=== PATIENT | female | born 1970 | race Caucasian/White ===

== ENCOUNTER 2017-03-11 15:08 | Emergency (ER) | payer OTHER ==
[2017-03-11] MEDS ORDERED: OXYCODONE/APAP 5/325 TAB PO ONE (15:18)
[2017-03-11 15:20] VITALS: RESP 18; TEMP 97.9
--- NOTE | 2017-03-11 15:29 | EDPHY ---
H & P Time Seen by Provider: 03/11/17 15:12 HPI/ROS: HPI Left hand injury. 46-year-old female by private vehicle with her . This patient was working on her washing machine with her . The washing machine was on a spin cycle and she stuck her left hand into the back of the machine while it was spinning fast. She sustained a laceration and contusion to the distal aspect of her left index finger. She sustained a contusion to the distal aspect of her middle finger. She has had a tetanus shot within the last 5 years. She is right-hand dominant. She denies any other injury or complaint. ROS: Constitutional: No fever, no chills. No weakness. Musculoskeletal: No back pain. No neck pain. As above. Skin: No rashes. As above. Neurological: No headache. No focal weakness or altered sensation. Past medical history: Tonsillectomy, cholecystectomy. Social history: Here with her . Nonsmoker. No alcohol. Physical Exam: General Appearance: Alert, no distress. This patient is responding to questions appropriately and in full sentences. This patient appears well- hydrated and well-nourished. Eyes: Pupils equal and round no pallor or injection. No lid edema, erythema or injection. Left hand examination: Significant for a linear laceration, radial aspect, distal index finger tip, laceration extends into the adam neck ill fold on the radial aspect of the digit. Middle finger examination is significant for a subungual hematoma representing about 40-50%. Most prominent distal aspect of the nail bed. She has some mild bleeding from the paronychial fold on the radial aspect of that digit. It is tender to the touch. Capillary refill in all digits of the left hand normal. Flexor digitorum profundus and superficialis as well as extensor tendon function intact in digits 2 through 4. The thumb is normal. The palmar aspects of the hand and dorsal metacarpal aspects are normal. The left hand is neurovascularly intact. Respiratory: There are no retractions, lungs are clear to auscultation with good air movement bilaterally. Neurological: Motor sensory function is grossly intact. Cranial nerves are normal. Gait is normal. Skin: Warm and dry, no rashes. Musculoskeletal: Neck is supple and nontender. Extremities are symmetrical. All joints range without pain or impingement. Psychiatric: No agitation. No depression. Database: EKG: Imaging: Left hand x-ray series: Significant for a minimally displaced fracture to the very distal tip of the distal phalanx index finger. She also has a bony disruption and probable fracture with minimal displacement to the distal tip of the distal phalanx of the middle finger. There is some radio opaque debris in the soft tissue of the distal finger tip of the middle finger. This could be bone debris from her fracture or possible foreign material. Interpreted by me. Procedures: Procedure: Laceration repair. 1. Verbal consent was obtained from the patient. The 2 cm laceration on the distal index finger, partially involving the distal nail bed was anesthetized in the usual fashion. The wound was irrigated, draped and explored to its base with a gloved finger. There were no deep structures involved. No tendon injury was identified. No foreign body was identified on exploration. The wound was repaired with 9, 5.0 Prolene sutures placed in interrupted fashion. The wound repair was tolerated well and there were no complications. The procedure was performed by myself. Procedure: Laceration repair. 2. Verbal consent was obtained from the patient. The 2 cm laceration on the distal middle finger partially involving the distal nail bed was anesthetized in the usual fashion. The wound was irrigated, draped and explored to its base with a gloved finger. There were no deep structures involved. No tendon injury was identified. No foreign body was identified exploration The wound was repaired with 7, 5.0 Prolene sutures placed in interrupted fashion. The wound repair was tolerated well and there were no complications. The procedure was performed by myself. Emergency department course: Digital block performed on digits 2 and 3 using 0.5% bupivacaine without epinephrine. No complications, excellent anesthesia of this digits. After suture repair as above. X-ray results were discussed with the patient. Secondary to probable open fracture she was given 500 mg of Keflex in the emergency department. She will be prescribed this medication on discharge. Infection precautions in general suture care discussed. Follow-up through her primary care physician or a hand specialist which I will provide her referral to was discussed. Return to emergency department precautions reviewed. All of her questions were answered. She was discharged in good condition. Differential Diagnosis: The differential diagnosis on this patient includes but is not limited to finger laceration, finger contusion, subungual hematoma distal phalanx fractures. This represents a partial list of diagnoses considered. These considerations are based on history, physical exam, past history, reassessment and diagnostic testing. Smoking Status: Former smoker Constitutional: Initial Vital Signs Temperature (C) 36.6 C 03/11/17 15:18 Heart Rate 63 03/11/17 15:18 Respiratory Rate 18 03/11/17 15:18 Blood Pressure 133/85 H 03/11/17 15:18 O2 Sat (%) 99 03/11/17 15:18 O2 Delivery Mode Room Air Allergies/Adverse Reactions: codeine Allergy (Verified 03/11/17 15:20) fentanyl Allergy (Verified 03/11/17 15:20) Sulfa (Sulfonamide Antibiotics) Allergy (Verified 03/11/17 15:20) Home Medications: Medication Instructions Recorded Cephalexin [Keflex (*)] 500 mg PO Q6 7 Days 03/11/17 oxyCODONE/APAP 5/325 [Percocet 1 - 2 tab PO Q4-6PRN PRN #12 tab 03/11/17 5/325 (*)] Medical Decision Making - Diagnostics Imaging Results: Imaging Impressions Hand X-Ray 03/11/17 15:17 Impression: Fractures of the distal crystal of the second and third digits. - Data Points Medications Given: Discontinued Medications Cephalexin HCl (Keflex) 500 mg PO EDNOW ONE PRN Reason: Protocol Stop: 03/11/17 15:49 Last Admin: 03/11/17 16:34 Dose: 500 mg Oxycodone/Acetaminophen (Percocet 5/325) 2 tab PO EDNOW ONE Stop: 03/11/17 15:19 Last Admin: 03/11/17 15:25 Dose: 2 tab Departure - Departure Disposition: Home, Routine, Self-Care Clinical Impression: Finger laceration, Finger fracture, left Condition: Good Instructions: Care For Your Stitches (ED), Laceration (ED), Finger Laceration ( ED) Additional Instructions: Read and follow provided instructions. Follow-up with your primary care physician in 2 days or the hand specialist I have recommended to you for re-evaluation and any further management. Sutures are to be removed in 8-10 days. Take medication as prescribed. Take antibiotics through entire course of treatment. Return to the emergency department for worsening pain, discoloration, redness or swelling or other serious concerns. Ibuprofen dosin mg every 6 hours with meals for the next 3 days only. [place]/Percocet dosin-2 every 4-[address] for [address] Do not drive on this medication. Referrals: Yumi Leonardo [Primary Care Provider] - As per Instructions Lorin Kaiser MD [Medical Doctor] - As per Instructions Prescriptions: Cephalexin [Keflex (*)] 500 mg PO Q6 7 Days oxyCODONE/APAP 5/325 [Percocet 5/325 (*)] 1 - 2 tab PO Q4-6PRN PRN #12 tab PRN Reason: For Moderate To Severe Pain
[2017-03-11] MEDS ORDERED: CEPHALEXIN 500 MG CAP PO ONE (15:48)
[2017-03-11 16:52] VITALS: BP 106/65; PULSE 58; O2SAT 98
== END 2017-03-11 16:47 | disposition home or self-care (01) ==
LOC: CED 15:08
PROC: 0HQGXZZ Repair Left Hand Skin, External Approach (ICD-10-PCS; principal; 2017-03-11)
DX: S62.631A Displaced fracture of distal phalanx of left index finger, initial encounter for closed fracture (principal); S62.633A Displaced fracture of distal phalanx of left middle finger, initial encounter for closed fracture; S61.211A Laceration without foreign body of left index finger without damage to nail, initial encounter; S61.213A Laceration without foreign body of left middle finger without damage to nail, initial encounter; Z87.891 Personal history of nicotine dependence; W29.2XXA Contact with other powered household machinery, initial encounter
CPT/HCPCS: 73130-PO

== ENCOUNTER → 2019-01-10 | Outpatient (CLI) | payer OTHER | LOC: EMCIMAGING 13:09 ==